=== PATIENT | female | born 1990 | race African-American/Black ===

== ENCOUNTER 2020-09-13 22:58 | Emergency (ER) | payer OTHER, SELFPAY ==
[2020-09-13 23:00] VITALS: BP 176/95; PULSE 61; RESP 18; TEMP 36.1; O2SAT 100; BMI 26.6
[2020-09-14 01:20] VITALS: BP 171/96; PULSE 62; RESP 18; TEMP 37.3; O2SAT 99
--- NOTE | 2020-09-14 02:18 | PC.NURSE ---
at bedside for primary eval.
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
[2020-09-14] MEDS: Acetaminophen 325 MG TABLET 650 MG PO (02:37)
--- NOTE | 2020-09-14 02:38 | PC.NURSE ---
Medicated with Tylenol for 9/10 pain to head and right knee.
--- NOTE | 2020-09-14 03:25 | XR_ITS ---
EXAMINATION: XR KNEE, RIGHT CLINICAL INFORMATION: pain, fall COMPARISON: None TECHNIQUE: Four views of the right knee. FINDINGS: Antegrade intramedullary nails are identified in the distal femur and in the proximal tibia with associated interlocking screws. Hardware is intact. No acute osseous abnormalities are identified. The right knee joint appears relatively well-preserved. No joint effusion. No acute fractures. Alignment appears anatomic. XR/XR knee RT 4V IMPRESSION: No acute osseous abnormalities are identified at the right knee.
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
[2020-09-14 03:36] VITALS: BP 143/88; PULSE 58; RESP 18; TEMP 37.1; O2SAT 100
[2020-09-14] MEDS: Ibuprofen 600 MG TABLET PO (03:42)
--- NOTE | 2020-09-14 03:43 | PC.NURSE ---
Pt medicated with Motrin per MAR for 6/10 pain to head/right knee. Off to XRay.
--- NOTE | 2020-09-14 04:23 | PC.NURSE ---
Pt sleeping in bed at this time awaiting XRay results.
[2020-09-14 05:26] VITALS: BP 146/88; PULSE 60; RESP 16; O2SAT 100
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
== END 2020-09-14 06:35 | disposition home or self-care (01) ==
PROVIDERS: Emergency Provider Emergency Medicine
DX: S89.91XA Unspecified injury of right lower leg, initial encounter (principal); M79.10 Myalgia, unspecified site; M25.561 Pain in right knee; J34.89 Other specified disorders of nose and nasal sinuses; Y04.8XXA Assault by other bodily force, initial encounter; Y93.9 Activity, unspecified; Y92.9 Unspecified place or not applicable; Y99.9 Unspecified external cause status
CPT/HCPCS: 70160; 73564; 99283; 99284

== ENCOUNTER 2024-07-28 02:51 | Emergency (ER) | payer OTHER, SELFPAY ==
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
--- NOTE | ~2024-07-28 | XR_ITS ---
EXAMINATION: XR CHEST CLINICAL INFORMATION: fall injury COMPARISON: None available. TECHNIQUE: Frontal view of the chest was obtained. FINDINGS: Normal appearance of the cardiomediastinal structures. No effusions or pneumothoraces. No focal pulmonary consolidation. Normal pattern of pulmonary vasculature. Deformities of the left and right clavicles are present and may represent bilateral chronic posttraumatic deformities of the clavicles or anatomic variation. Symmetric configuration suggests normal anatomic variation. No displaced rib fractures identified. XR/XR chest 1V IMPRESSION: No cardiopulmonary abnormalities. Lungs clear. No effusions or pneumothoraces. Electronically signed by: Justo Mcpherson MD 07/28/2024 03:37 AM [facility]
[2024-07-28 03:00] VITALS: BP 126/70; BP 134/79; PULSE 61; PULSE 65; RESP 20; TEMP 36.8; O2SAT 94; O2SAT 98; BMI 23.5
[2024-07-28 03:31] LABS: Basophils Percent Auto 0.5 % (0-2); Hematocrit 35.9 % (37.0-47.0); Hemoglobin 11.9 g/dl (12.0-16.0); Imm Gran Abs Auto 0.02 X10*3/uL (0.00-0.03); Imm Gran Pct Auto 0.5 % (0.0-0.4); Lymphocytes Absolute Auto 0.9 X10*3/uL (1.2-4.9); MANUAL DIFF FLAG NO; Mean Corpuscular HGB Conc 33.1 g/dl (31.0-35.0); Mean Corpuscular Hemoglobin 28.8 pg (27.0-33.0); Mean Corpuscular Volume 86.9 fL (80.0-98.0); Mean Platelet Volume 8.4 fL (9.4-12.3); Monocytes Absolute Auto 0.2 X10*3/uL (0.1-1.2); Monocytes Percent Auto 4.1 % (2-11); Neutrophils Percent Auto 72.9 % (45-73); Platelet Count 301 X10*3/uL (160-400); Red Blood Count 4.13 X10*6/uL (4.20-5.50); White Blood Count 4.1 X10*3/uL (4.8-10.8)
[2024-07-28 03:46] LABS: Alanine Aminotransferase 19 U/L (0-31); Albumin Level 4.2 g/dL (3.5-5.0); Alkaline Phosphatase 87 U/L (39-117); Anion Gap 20 (12-20); Aspartate Amino Transferase 36 U/L (5-31); Bilirubin Total 0.2 mg/dL (0.0-1.0); Blood Urea Nitrogen 4 mg/dL (9-16); Calcium 9.2 mg/dL (8.4-10.2); Carbon Dioxide 22 mmol/L (22-29); Chloride 104 mmol/L (96-108); Creatinine Clr Calc Pharmacy 102.7; Estimated Glomerular Filt Rate > 60; Ethanol 265 mg/dL; Glucose Random 90 mg/dL (60-115); Potassium 3.8 mmol/L (3.3-5.1); Sodium 142 mmol/L (135-145); Total Protein 7.5 g/dL (6.5-8.0)
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
[2024-07-28] MEDS: Ketorolac Tromethamine 30 MG/ML VIAL IM (04:10)
[2024-07-28 04:31] LABS: HCG Quantitative < 2 mIU/mL
--- NOTE | 2024-07-28 04:53 | PC.NURSE ---
Iv placed for CT scan and pt medicated for pain management.
[2024-07-28] MEDS: iohexoL 350 MG/ML 100 ML INFUS..BTL 85 ML IV (04:58)
[2024-07-28 06:19] VITALS: BP 125/81; PULSE 78; RESP 16; TEMP 36.1; O2SAT 95
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
== END 2024-07-28 06:21 ==
PROVIDERS: Emergency Provider Emergency Medicine; PCP Internal Medicine
DX: S29.9XXA Unspecified injury of thorax, initial encounter (principal); X58.XXXA Exposure to other specified factors, initial encounter; Y93.9 Activity, unspecified; Y92.9 Unspecified place or not applicable; Y99.9 Unspecified external cause status; Z65.3 Problems related to other legal circumstances; R10.11 Right upper quadrant pain
CPT/HCPCS: 36415; 71045; 74177; 80053; 80307; 84702; 85025; 96372; 99284; J1885; Q9967